=== PATIENT | male | born 1955 | race Caucasian/White ===

== ENCOUNTER 2018-09-13 08:55 | Day surgery (SDC) | payer MEDICARE, OTHER, MEDICAID ==
[2018-09-13] MEDS ORDERED: PROPOFOL 20 ML (10:53)
[2018-09-13] MEDS ORDERED: ONDANSETRON 4 MG INJ IV (11:00)
[2018-09-13] MEDS ORDERED: LABETALOL HCL 20MG INJ IV (11:00)
[2018-09-13] MEDS ORDERED: METOCLOPRAMIDE 10 MG INJ IV (11:00)
[2018-09-13] MEDS ORDERED: hydrALAzine 20 MG INJ IV (11:00)
== END 2018-09-13 15:35 | disposition home or self-care (01) ==
LOC: GIL 08:55
DX: Z12.11 Encounter for screening for malignant neoplasm of colon (principal); D12.8 Benign neoplasm of rectum; K57.30 Diverticulosis of large intestine without perforation or abscess without bleeding; E11.9 Type 2 diabetes mellitus without complications; I10 Essential (primary) hypertension
CPT/HCPCS: 45380; 82962; 88305